=== PATIENT | male | born 1995 | race Caucasian/White ===

== ENCOUNTER 2018-09-05 14:10 | Emergency (ER) | payer MEDICAID ==
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
--- NOTE | 2018-09-05 16:10 | CR ---
EXAMINATION: Left humerus HISTORY: Pain COMPARISON: None TECHNIQUE: 2 views FINDINGS/IMPRESSION: Screw and plate hardware fixate a well-healed distal humeral diaphysis injury. Multiple metallic fragments project within the soft tissues adjacent to the left humerus. There is no definite fracture or acute osseous abnormality noted.
[2018-09-05 16:22] VITALS: BP 133/62
== END 2018-09-05 16:15 | disposition home or self-care (01) ==
LOC: MW.ED 14:10
DX: S49.92XA Unspecified injury of left shoulder and upper arm, initial encounter (principal); X50.0XXA Overexertion from strenuous movement or load, initial encounter
CPT/HCPCS: 73060-26-LT; 73060-LT; 99283-25